=== PATIENT | male | born 1975 | race African-American/Black ===

== ENCOUNTER 2017-06-14 11:21 | Emergency (ER) | payer MEDICAID, SELFPAY ==
[2017-06-14 11:22] VITALS: BP 133/75; PULSE 90; RESP 18; TEMP 36.4; O2SAT 96; BMI 29.4
--- NOTE | 2017-06-14 11:32 | US_ITS ---
STUDY: SCROTUM ULTRASOUND REASON FOR EXAM: Male, 42 years old. Right-sided scrotal pain and swelling. TECHNIQUE: Ultrasound evaluation of the scrotum was performed with color Doppler and static muhammad-scale imaging. COMPARISON: None. FINDINGS: RIGHT TESTICLE INTRATESTICULAR: There is a normal size of the right testicle. The right testicle measures 2.6 x 4.0 x 1.9 cm. There is a heterogeneous echotexture. There is normal arterial and normal venous vascularity. There is no demonstrated right testicular mass or cyst. EXTRATESTICULAR: The epididymis is normal in size. The epididymis head measures 7.4 x 8.7 x 16.9 mm. There is normal vascularity of the epididymis. There is a well-defined cystic structure within the epididymis, without internal echoes, consistent with an epididymal cyst. There is no demonstrated hydrocele. There is no demonstrated varicocele. There is no demonstrated extratesticular mass or cyst. LEFT TESTICLE INTRATESTICULAR: There is a normal size of the left testicle. The left testicle measures 2.4 x 3.3 x 1.7 cm. There is a homogenous echotexture. There is normal arterial and normal venous vascularity. There is no demonstrated left testicular mass or cyst. EXTRATESTICULAR: The epididymis is normal in size. The epididymis head measures 13.9 x 9.1 x 12.2 mm. There is normal vascularity of the epididymis. There is a well-defined cystic structure within the epididymis, without internal echoes, consistent with an epididymal cyst. There is no demonstrated hydrocele. There is no demonstrated varicocele. There is no demonstrated extratesticular mass or cyst. US/Testicular with Arterial Flow IMPRESSION: Normal bilateral testicles. Electronically Signed: Roxy Ugalde MD at 12:53 EST , Service support ,
[2017-06-14 12:33] LABS: Red Blood Cells-Urine 0 SEEN /hpf (0-5)
[2017-06-14 12:35] LABS: Color, Urine Yellow (Yellow); Glucose, Dipstick Normal (Normal); Ketone-Dipstick 5 mg/dl (Negative); Leukocyte Esterase-Dipstick 100 /ul (Negative); Nitrite-Dipstick Negative (Negative); Occult Blood-Urine Negative /ul (Negative); Protein-Dipstick 15 mg/dl (Negative); Specific Gravity, Urine 1.025 (1.002-1.030); Urine Clarity Sl. Cloudy (Clear); Urine Urobilinogen 1 mg/dl (Normal)
[2017-06-14 12:38] LABS: Urine Bilirubin Dipstick 1 mg/dL (Negative)
[2017-06-14 12:44] LABS: White Blood Cells 0-5 SEEN /hpf (0-5)
[2017-06-14 12:45] LABS: Bacteria RARE /hpf (None Seen); Mucous, Urine 1+ /hpf (<or=2+); Squamous Epithelial Cells - UA 0-5 SEEN /hpf (0-5)
--- NOTE | 2017-06-14 13:51 | ED.VISSUMM ---
- ER Visit Summary Date of Service: 06/14/17 Chief Complaint: [Pain and swelling right testicle] History of Present Illness: The patient is a 42 M [the emergency department with complaint of pain and swelling to his right testicle that he noticed initially about a year ago. Patient states that he really did not follow-up even though he was told to follow-up because he was concerned about the little lump in his testicle might be. Patient states 2 days ago started having increased discomfort to the area so now he comes in for evaluation. Patient denies any trauma to his testicle. Denies any fever. Denies any dysuria.] Physical Examination: [HEENT-PERRLA, EOMI. Cranial nerves II through XII grossly intact. TMs clear. Mucous membranes moist. No adenopathy. Cardiovascular-regular rate and rhythm without murmur or ectopy Lungs-clear to auscultation, chest wall stable without crepitus or subcu emphysema Abdomen-normoactive bowel sounds, soft, nontender, no rebound or rigidity, no peritoneal signs. exam-patient is a circumcised male. Patient has some tenderness over the right epididymis with some mild fullness noted. No testicular masses noted. No significant edema noted. There is normal cremasteric reflex. There is no drainage from the penis noted. Extremities-intact ?4, normal range of motion, normal pulses, atraumatic] Test Results: [Urinalysis was normal. Ultrasound of the right testicle showed an epididymal cyst without evidence for epididymitis or other acute disease process. There were no masses noted otherwise.] Emergency Department Course and Treatment: [Shunt will be started on naproxen and will be also started on Cipro as I suspect he may have early epididymitis] Treatment Plan: [Patient to follow-up with urologist on-call in 5-7 days.] Disposition: [Discharged to home in stable condition] Impression: [Right epididymal cyst Epididymitis] This note was generated with [employer] dictation software. It may contain incorrect words, spelling, and punctuation that were not noted in review of the chart prior to signing ED Disposition - Plan for ED Patient: Chief Complaint: Male Pain/Injury Referrals: Care Physician,No Primary [Primary Care Provider] -
--- NOTE | 2017-06-14 13:54 | ED.DEP ---
ED Disposition - Plan for ED Patient: Chief Complaint: Male Pain/Injury Instructions: ED Epididymitis Prescriptions: Naproxen [Naprosyn] 500 mg PO BID PRN #20 tab Ciprofloxacin [Cipro] 500 mg PO BID #14 tab Referrals: Care Physician,No Primary [Primary Care Provider] - Alvarado Marina MD [STAFF PHYSICIAN] - 5-7 Days
[2017-06-14 14:06] VITALS: PULSE 76; RESP 14; O2SAT 99
== END 2017-06-14 14:06 | disposition home or self-care (01) ==
LOC: ED 11:42
PROVIDERS: Emergency Provider Emergency Medicine
DX: N50.3 Cyst of epididymis (principal); N45.1 Epididymitis; Z72.0 Tobacco use
CPT/HCPCS: 76870; 81001; 93976; 99282

== ENCOUNTER 2023-03-08 19:41 | Emergency (ER) | payer MEDICAID, SELFPAY ==
[2023-03-08 19:41] VITALS: BP 156/102; PULSE 82; RESP 16; TEMP 36.6; O2SAT 100; BMI 31.2
--- NOTE | 2023-03-08 19:43 | ED.RN ---
PT ADAMANTLY DECLINES FILING WORKER'S COMP, ACKNOWLEDGES HE'LL BE RESPONSIBLE FOR ALL MEDICAL EXPENSES
--- NOTE | 2023-03-08 19:49 | EDS_ITS ---
HPI <IVAN Hickman - Last Filed: 03/08/23 20:32> History of Present Illness Chief Complaint: Eye Problem Narrative Narrative: 47-year-old male states he was cutting wood at work and a small piece flew into his left eye around 4:30 PM. He had increased discomfort and presents for evaluation. He wears glasses. Denies vision changes. PFSH <IVAN Hickman Last Filed: 03/08/23 20:32> PFSH Home Medications ciprofloxacin HCl 500 mg tablet 500 mg PO BID #14 tabs 06/14/17 [Rx Last Taken Unknown] naproxen 500 mg tablet 500 mg PO BID PRN #20 tabs 06/14/17 [Rx Last Taken Unknown] erythromycin 5 mg/gram (0.5 %) eye ointment 1 applic LEFT EYE Q6H 5 days #3.5 grams 03/08/23 [Rx Last Taken Unknown] Allergy/AdvReac Type Severity Reaction Status Date / Time Penicillins Allergy Unknown Verified 03/08/23 19:43 Social History Smoking Status: Current every day smoker ROS <IVAN Hickman - Last Filed: 03/08/23 20:32> ROS ED ROS Narrative Eyes: Negative for visual change. Neuro: Negative for headache. EXAM <IVAN Hickman Last Filed: 03/08/23 20:32> Physical Exam Narrative Exam Narrative: CONST: Patient sitting in no acute distress. EYES: Left eye is injected, PERRLA, EOMI without pain, eyelid everted with no foreign body present. Fluorescein stain shows corneal abrasion around 9 o'clock position of the iris. Negative Angelic sign. SKIN: Color normal, no rash, warm, dry, intact. EXTREMITIES: Normal appearance, no pedal edema. NEURO: Oriented x4. PSYCH: Normal affect. Const Vital Signs: 03/08/23 19:41 Temperature 97.8 F Temperature Source Temporal Pulse Rate 82 Respiratory Rate 16 Blood Pressure 156/102 H Blood Pressure Mean 120 Pulse Ox 100 MDM <IVAN Hickman Last Filed: 03/08/23 20:32> MDM MDM Narrative Medical decision making narrative: Patient thinks he would chip flew into his left eye and he has redness, tearing, and pain. Tetracaine was applied with improvement in his symptoms. His pupils are equal and reactive and extraocular motion intact without pain. Eye was fully examined and eyelids averted with no foreign body present. Fluorescein stain applied and slit-lamp examination showed a medial iris corneal abrasion. No evidence of globe injury. Since he does not wear contacts I prescribed erythromycin ointment with first dose given here. Ophthalmology contact info rmation was provided and he was discharged in stable condition. <Dr. Emmanuel Moya MD - Last Filed: 03/08/23 20:35> [facility] Treatment and Re-Evaluation Narrative: I have personally performed a face to face assessment of the patient and have reviewed the DAYANA Note. I performed a substantive portion of the visit including all aspects of the following. My chow findings include: History is foreign body sensation suddenly along with pain in the left eye while using a chop saw on wood Exam is conjunctival injection and blepharospasm left eye. There is dye uptake superficially nasal aspect 9:00 left cornea consistent with an abrasion. Negative Angelic sign. Anterior chamber deep and quiet. Medical Decison Making topical antibiotics, ophthalmologic follow-up as needed. Other additions or changes: [None] Discharge Plan Triage Chief Complaint: Eye Problem ED Midlevel Provider: Saadia Amor ED Provider: Emmanuel Moya Dx/Rx/DC Orders Clinical Impression: Corneal abrasion, left Instructions: Corneal Injury Prescriptions: New erythromycin 5 mg/gram (0.5 %) ointment 1 applic LEFT EYE Q6H 5 Days Qty: 3.5 0RF No Action ciprofloxacin HCl 500 MG tablet 500 mg PO BID Qty: 14 0RF naproxen 500 MG tablet 500 mg PO BID PRN Qty: 20 0RF Primary Care Provider: Care Physician,No Primary Referrals: Tono Edgar MD [Med Staff - Active Staff] - Care Physician,No Primary [Primary Care Provider] - Activity Restrictions/Additional Instructions: Apply ointment as prescribed, follow-up with ophthalmology if its not improving in 3 to 5 days Disposition Disposition: Home, Self Care
[2023-03-08] MEDS: Tetracaine 0.5% Ophthalmic Bottle 1 DRP LEFT EYE (19:55)
[2023-03-08] MEDS: Fluorescein 1 MG STRIP 1 STRIP EACH EYE (19:56)
[2023-03-08] MEDS: Erythromycin Base 1 OPTH.TUBE 1 APPLIC LEFT EYE (20:32)
== END 2023-03-08 20:36 | disposition home or self-care (01) ==
LOC: ED 20:29
PROVIDERS: Emergency Provider Emergency Medicine; Visit Provider Emergency Medicine
DX: S05.02XA Injury of conjunctiva and corneal abrasion without foreign body, left eye, initial encounter (principal); F17.200 Nicotine dependence, unspecified, uncomplicated; X58.XXXA Exposure to other specified factors, initial encounter
CPT/HCPCS: 99283